=== PATIENT | male | born 1985 | race Caucasian/White ===

== ENCOUNTER 2020-12-16 01:02 | Emergency (ER) | payer SELFPAY ==
[~2020-12-16] VITALS: Ht 182.9 cm; Wt 98.5 kg
[2020-12-16 01:11] VITALS: BP 151/83
--- NOTE | 2020-12-16 01:23 | NUR ---
PT CAME IN [place] RASH ALL OVER HIS BODY. PT GOT THE HAZEL AND HAZEL COVID VACCINE ON FRIDAY AND SINCE HE HAS HAD A RASH BREAK OUT. PT DENIES SOB AND DID NOT TAKE ANY MEDS AT HOME.
[2020-12-16] MEDS ORDERED: DIPHENHYDRAMINE 50 MG CAPSULE ONE (01:53)
[2020-12-16] MEDS ORDERED: DIPHENHYDRAMINE 25 MG CAPSULE PO ONE (02:00)
== END 2020-12-16 02:24 | disposition home or self-care (01) ==
LOC: ED 02:22
DX: T78.49XA Other allergy, initial encounter (principal); R21 Rash and other nonspecific skin eruption; X58.XXXA Exposure to other specified factors, initial encounter
CPT/HCPCS: 99283; J7512; Q0163